=== PATIENT | male | born 1955 | race Caucasian/White ===

== ENCOUNTER 2021-09-25 09:55 | Emergency (ER) | payer BC, OTHER ==
[2021-09-25] MEDS ORDERED: Acetaminophen/HYDROcodone 325-5 MG Tab PO ONE (10:05)
== END 2021-09-25 12:00 | disposition home or self-care (01) ==
LOC: FB.ED 10:04
DX: S01.01XA Laceration without foreign body of scalp, initial encounter (principal); S80.11XA Contusion of right lower leg, initial encounter; S40.022A Contusion of left upper arm, initial encounter; S40.021A Contusion of right upper arm, initial encounter; Z98.1 Arthrodesis status; W18.09XA Striking against other object with subsequent fall, initial encounter
CPT/HCPCS: 12005; 70450; 72125; 99283; A9270